=== PATIENT | female | born 1965 | race Caucasian/White ===

== ENCOUNTER 2016-12-22 19:49 | Emergency (ER) | payer BC, OTHER ==
[2016-12-22] MEDS ORDERED: BACITRACIN 1 APP/PKT PKT TOPICAL ONE (20:21)
[2016-12-22] MEDS ORDERED: DIPH,PERTUSS(ACELL),TET VAC/PF 0.5 ML VIAL IM ONE (20:23)
--- NOTE | 2016-12-22 20:24 | ER NURSING DOCUMENTATION ---
Nurse's Notes [facility] Name:Lydia Ramon Age:51 yrs Sex:Female :1965 Arrival Date:12/22/2016 Time:19:49 Bed6 Private MD:Mariza Rolle Diagnosis:Finger Laceration Presentation: 12/22 19:58 Presenting complaint: Patient states: cut her left 5th digit with a knife about 30 la minutes ago. Bleeding controlled, CMS intact. Last tetanus was 9 years ago. Transition of care: Home. 19:58 Acuity: MERA 4 la 19:58 Method Of Arrival: Private Vehicle la Triage Assessment: 20:00 General: Appears comfortable, Behavior is appropriate for age, cooperative, pleasant, la quiet. Pain: Complains of pain in left 5th digit. EENT: No deficits noted. Neuro: No deficits noted. Cardiovascular: No deficits noted. Respiratory: No deficits noted. GI: No deficits noted. : No deficits noted. Derm: No deficits noted. Musculoskeletal: No deficits noted. Injury Description: Laceration sustained to left 5th digit is bleeding no active bleeding noted. Historical: - Allergies: Codeine; - Home Meds: 1. None - PMHx: None; - PSHx: None; - Tetanus: < 10 years. - Ebola Screening: : Patient negative for fever greater than or equal to 101.5 degrees Fahrenheit, and additional compatible Ebola Virus Disease symptoms. - Immunization history: Flu Vaccine None. - Social history: Smoking status: Patient states was never smoker of tobacco. Screenin:02 Infectious Disease Risk None. Abuse screen: Denies threats or abuse. Nutritional la screening: No deficits noted. Assessment: 20:02 See Triage Assessment done by same RN. la Vital Signs: 20:01 BP 132 / 75 RA Sitting; Pulse 63; Resp 18; Temp 98.0(O); Pulse Ox 94% on R/A; Weight la 70.31 kg (R); Height 5 ft. 5 in. (165.10 cm) (R); Pain 2/10; 20:01 Body Mass Index 25.79 (70.31 kg, 165.10 cm) la ED Course: 19:57 Patient arrived in ED. ma1 19:57 Mariza Rolle MD is Private Physician. ma1 19:58 Andreia Perry is Primary Nurse. la 19:59 Triage completed. la 20:02 Valuables Remains with patient Patient has correct armband on for positive la identification. Bed in low position. Call light in reach. Door closed. Verbal reassurance given. 20:05 Assist Provider Assist provider with laceration repair on left 5th digit Dressed with la Neosporin, tube gauze Patient tolerated well. 20:07 Dimitrios Hull MD is Attending Physician. tl1 20:07 Mariza Rolle MD is Referral Physician. tl1 Administered Medications: 20:18 Drug: Tetanus-Diphtheria Toxoid Adult 0.5 ml; {Nurse Instructor: [employer]. la Exp: 12/12/2017. Lot #: [id number]. } Route: IM; Site: left deltoid; 20:23 Follow up: Response: No adverse reaction la 20:19 Drug: Bacitracin Ointment (500 unit/g) 1 application; Route: Topical; Site: wound; la 20:22 Follow up: Response: No adverse reaction la Outcome: 20:08 Discharge ordered by . tl1 20:23 Discharged to home ambulatory. la 20:23 Condition: stable 20:23 Discharge Assessment: Patient awake, alert and oriented x 3. No cognitive and/or functional deficits noted. Patient verbalized understanding of disposition instructions. 20:23 Discharge instructions given to patient, Instructed on discharge instructions, follow up and referral plans. wound care, Demonstrated understanding of instructions. 20:24 Patient left the ED. la 12/23 13:07 Discharge F/U Call: Spoke with: patient. other: Name: pt states she is in to much st pain to type and needs a not to extended her [place] paper do date. note at front office secretary for her. Signatures: Ayesha Lacey, RN Andreia Ken Tom, MD MD tl1 Rein[place], [facility]
--- NOTE | 2016-12-24 20:24 | ER PHYSICIAN DOCUMENTATION ---
Physician Documentation [facility] Name:Lydia Ramon Age:51 yrs Sex:Female :1965 Arrival Date:12/22/2016 Time:19:49 Bed6 Private MD:Mariza Rolle ED DellaDimitrios Disposition: 12/24 09:13 Chart complete. tl1 Disposition: 12/22/16 20:08 Discharged to Home/Self Care. Impression: Finger Laceration. - Condition is Good. - Discharge Instructions: Diphtheria Tetanus acellular Pertussis Vaccines - PERTUSSIS (6yr-Adult). - Medical Reconciliation form form. - Follow up: Mariza Rolle MD; When: 7 - 10 days; Reason: Recheck today's complaints. - Problem is new. - Symptoms have improved. HPI: 12/22 20:00 This 51 yrs old Female presents to ER via Private Vehicle with complaints of tl1 Hand Injury. 20:00 The patient or guardian reports a laceration, clean, 0.6 cm(s), simple. The complaints tl1 affect the radial aspect of middle phalanx of left little finger. Context: The problem was sustained at home, resulted from knife. Onset: The symptom(s)/episode began/occurred just prior to arrival. Severity of symptoms: At their worst the symptoms were mild, in the emergency department the symptoms are unchanged. Historical: - Allergies: Codeine; - Home Meds: 1. None - PMHx: None; - PSHx: None; - Tetanus: < 10 years. - Ebola Screening: : Patient negative for fever greater than or equal to 101.5 degrees Fahrenheit, and additional compatible Ebola Virus Disease symptoms. - Immunization history: Flu Vaccine None. - Social history: Smoking status: Patient states was never smoker of tobacco. ROS: 20:00 MS/extremity: Positive for laceration. tl1 20:00 All other systems are negative. Exam: 20:00 Constitutional: This is a well developed, well nourished patient who is awake, alert, tl1 and in no acute distress. 20:00 Head/Face: Normocephalic, atraumatic. tl1 20:00 Musculoskeletal/extremity: Extremities: grossly normal except: noted in the radial aspect of middle phalanx of left little finger: laceration, 6 mm long, clean superficial, not into the joint. Normal distal neurovascular exam. 20:00 Skin: see above. Vital Signs: 20:01 BP 132 / 75 RA Sitting; Pulse 63; Resp 18; Temp 98.0(O); Pulse Ox 94% on R/A; Weight la 70.31 kg (R); Height 5 ft. 5 in. (165.10 cm) (R); Pain 2/10; 20:01 Body Mass Index 25.79 (70.31 kg, 165.10 cm) la MDM: 20:00 Data reviewed: vital signs, nurses notes, and as a result, I will discharge patient. ED tl1 course: She elected not to suture this and I think this is entirely reasonable. It will heal. Encouraged her to keep it wrapped and try to avoid flexing it.. 20:08 Patient medically screened. tl1 Dispensed Medications: 20:18 Drug: Tetanus-Diphtheria Toxoid Adult 0.5 ml; {Surgical Services Assistant: [employer]. la Exp: 12/12/2017. Lot #: [id number]. } Route: IM; Site: left deltoid; 20:23 Follow up: Response: No adverse reaction la 20:19 Drug: Bacitracin Ointment (500 unit/g) 1 application; Route: Topical; Site: wound; la 20:22 Follow up: Response: No adverse reaction la Signatures: Andreia Perry Tom, MD MD tl1
== END 2016-12-22 20:24 | disposition home or self-care (01) ==
LOC: ER 19:49
DX: S61.217A Laceration without foreign body of left little finger without damage to nail, initial encounter (principal); W26.0XXA Contact with knife, initial encounter; Y92.019 Unspecified place in single-family (private) house as the place of occurrence of the external cause; Z23 Encounter for immunization
CPT/HCPCS: 90471; 99283